=== PATIENT | female | born 1990 ===

== ENCOUNTER 2017-02-27 21:09 | Emergency (ER) | payer SELFPAY ==
[2017-02-27 21:25] VITALS: BP 117/48
== END 2017-02-27 23:45 | disposition left against medical advice (07) ==
LOC: ED 21:09
DX: O9A.211 Injury, poisoning and certain other consequences of external causes complicating pregnancy, first trimester (principal); Z3A.09 9 weeks gestation of pregnancy; Z53.21 Procedure and treatment not carried out due to patient leaving prior to being seen by health care provider; W19.XXXA Unspecified fall, initial encounter; Y93.89 Activity, other specified; Y99.8 Other external cause status; Y92.89 Other specified places as the place of occurrence of the external cause